=== PATIENT | male | born 1965 | race African-American/Black ===

== ENCOUNTER 2024-04-23 11:31 | Emergency (ER) | payer SELFPAY ==
[~2024-04-23] VITALS: Ht 185.4 cm; Wt 102.3 kg
[2024-04-23] MEDS ORDERED: ISOVUE-370 76% 100ML VIAL As Ordered ONE (11:38)
[2024-04-23 12:08] LABS: BASO % 1.1 % (0.0-1.0); EOS # 0.1 10^3/uL (0.0-0.5); EOS % 2.5 % (0.0-3.0); HEMATOCRIT 44.4 % (42.0-52.0); HEMOGLOBIN 13.8 g/dl (13.5-17.5); LYMPH # 1.2 10^3/uL (1.5-5.0); LYMPH % 43.8 % (24.0-44.0); MEAN CORPUSCULAR HEMOGLOBIN 22.9 pg (27.0-33.0); MEAN CORPUSCULAR HGB CONC 31.1 g/dl (32.0-36.5); MEAN CORPUSCULAR VOLUME 73.6 fl (80.0-96.0); MONO # 0.3 10^3/uL (0.0-0.8); NEUTROPHILS # 1.2 10^3/uL (1.5-8.5); NEUTROPHILS % 41.9 % (36.0-66.0); PLATELET COUNT, AUTOMATED 164 10^3/uL (150-450); RED BLOOD COUNT 6.03 10^6/uL (4.30-6.10); WHITE BLOOD COUNT 2.8 10^3/uL (4.0-10.0)
[2024-04-23 12:12] VITALS: BP 156/76; TEMP 97; O2SAT 97
[2024-04-23 12:20] LABS: INR 1.05; PARTIAL THROMBOPLASTIN TIME 24.3 SECONDS (24.8-34.2); PROTHROMBIN TIME 13.4 SECONDS (12.5-14.5)
[2024-04-23 12:39] VITALS: BP 132/60; TEMP 97.4; O2SAT 98
[2024-04-23 12:59] LABS: CK-MB VALUE MASS 12.2 NG/ML (<3.6)
[2024-04-23 13:01] LABS: ALBUMIN 3.8 G/DL (3.2-5.2); ALKALINE PHOSPHATASE 69 U/L (46-116); ALT/SGPT 36 U/L (7.0-40); AST/SGOT 41 U/L (<34); BILIRUBIN,DIRECT 0.2 MG/DL (<0.4); BILIRUBIN,TOTAL 0.7 MG/DL (0.3-1.2); BLOOD UREA NITROGEN 22 MG/DL (9-23); CALCIUM LEVEL 9.1 MG/DL (8.5-10.1); CARBON DIOXIDE LEVEL 24 MMOL/L (20-31); CHLORIDE LEVEL 109 MMOL/L (98-107); CREATININE FOR GFR 0.98 MG/DL (0.70-1.30); GLOMERULAR FILTRATION RATE > 60.0 (>56); GLUCOSE, FASTING 151 MG/DL (60-100); POTASSIUM SERUM 4.1 MMOL/L (3.5-5.1); SODIUM LEVEL 139 MMOL/L (136-145); TOTAL PROTEIN 6.9 G/DL (5.7-8.2)
[2024-04-23 13:04] LABS: CPK CREATINE PHOSPHOKINASE 651 U/L (46-171); MB/CK RELATIVE INDEX 1.87 (< OR =4)
[2024-04-23 13:05] VITALS: BP 134/77; TEMP 98; O2SAT 100
[2024-04-23 13:57] LABS: CK-MB VALUE MASS 11.9 NG/ML (<3.6)
[2024-04-23 13:59] LABS: MB/CK RELATIVE INDEX 1.84 (< OR =4)
[2024-04-23] MEDS ORDERED: ECOT81TA5 PO (15:23)
[2024-04-23] MEDS ORDERED: ATOR80TA59 PO (15:23)
[2024-04-23] MEDS ORDERED: PERI4TAB PO (15:23)
[2024-04-23] MEDS ORDERED: HOME MED LIST COMPLETE! XX SCH (15:25)
[2024-04-23] MEDS: CLOPIDOGREL 75 MG TAB PO ONE (15:33)
[2024-04-23 16:00] VITALS: BP 135/79; O2SAT 99
[2024-04-23 16:15] VITALS: TEMP 97.8
== END 2024-04-23 16:24 | disposition left against medical advice (07) ==
LOC: EDBD 11:31 → M ED 11:31
DX: G45.9 Transient cerebral ischemic attack, unspecified (principal); Z53.20 Procedure and treatment not carried out because of patient's decision for unspecified reasons; I10 Essential (primary) hypertension; Z95.5 Presence of coronary angioplasty implant and graft; Z79.899 Other long term (current) drug therapy
CPT/HCPCS: 36415; 70450; 70496; 70498; 71045; 80047; 80048; 80076; 82550; 82553; 84484; 85025; 85610; 85730; 93005; 93041; 94760; 99285; Q9967